=== PATIENT | male | born 1950 | race Caucasian/White ===

== ENCOUNTER 2023-03-19 10:03 | Emergency (ER) | payer OTHER, MEDICARE, BC ==
[2023-03-19 10:32] LABS: BASOPHILS PERCENT AUTO 0.5 % (0.2-1.2); EOSINOPHILS ABSOLUTE AUTO 0.3 x10^3/uL (0.0-0.5); EOSINOPHILS PERCENT AUTO 6.8 % (0.0-4.0); HEMOGLOBIN 10.8 g/dL (14.0-18.0); LYMPHOCYTES ABSOLUTE AUTO 0.4 x10^3/uL (1.0-4.8); MEAN CORPUSCULAR HEMOGLOBIN 31.8 pg (26.0-32.0); MEAN CORPUSCULAR HGB CONC 31.8 g/dL (32.0-36.0); MONOCYTES ABSOLUTE AUTO 0.3 x10^3/uL (0.0-0.8); MONOCYTES PERCENT AUTO 7.9 % (2.0-11.0); NEUTROPHILS ABSOLUTE AUTO 3.3 x10^3/uL (1.8-7.7); NEUTROPHILS PERCENT AUTO 76.4 % (50.0-80.0); PLATELET COUNT,PLT 108 x10^3/uL (130-400); WHITE BLOOD CELL COUNT,WBC 4.3 x10^3/uL (4.0-10.0)
[2023-03-19 10:43] LABS: LYMPHOCYTES PERCENT AUTO 8.4 % (25.0-50.0)
[2023-03-19 10:49] LABS: INR 1.2 (0.9-1.1); PROTHROMBIN TIME 12.4 SEC (9.5-12.2)
[2023-03-19 10:54] LABS: A/G RATIO 1.09; ALANINE AMINOTRANSFERASE,ALT 24 U/L (16-63); ALBUMIN 3.5 g/dL (3.4-5.0); ALKALINE PHOSPHATASE 103 U/L (46-116); ASPARTATE AMNIOTRANSFERASE,AST 19 U/L (15-37); BILIRUBIN TOTAL 0.6 mg/dL (0.2-1.0); BLOOD UREA NITROGEN,BUN 28 mg/dL (7-18); CALCIUM 8.7 mg/dL (8.5-10.1); CARBON DIOXIDE,CO2 31 mmol/L (21-32); CHLORIDE,CL 106 mmol/L (98-107); CREATININE 2.3 mg/dL (0.70-1.30); GLUCOSE RANDOM 294 mg/dL (70-99); POTASSIUM,K 4.4 mmol/L (3.5-5.1); PROTEIN TOTAL,TP 6.7 g/dL (6.4-8.2); SODIUM,NA 143 mmol/L (136-145)
[2023-03-19 10:55] LABS: ANION GAP 10.4 mmol/L (5-15); C-REACTIVE PROTEIN < 0.50 mg/dL (<=0.50); ESTIMATED GFR 29 mL/min (>=60)
== END 2023-03-19 11:49 | disposition home or self-care (01) ==
LOC: VM.ED 10:03
DX: R07.89 Other chest pain (principal); I12.0 Hypertensive chronic kidney disease with stage 5 chronic kidney disease or end stage renal disease; N18.30 Chronic kidney disease, stage 3 unspecified; E11.21 Type 2 diabetes mellitus with diabetic nephropathy; E11.40 Type 2 diabetes mellitus with diabetic neuropathy, unspecified; E78.00 Pure hypercholesterolemia, unspecified; Z79.4 Long term (current) use of insulin; Z79.84 Long term (current) use of oral hypoglycemic drugs; Z79.899 Other long term (current) drug therapy
CPT/HCPCS: 36415; 71046; 80053; 84484; 85025; 85610; 85730; 86140; 93005; 93010; 99284; 99285

== ENCOUNTER 2023-06-30 09:19 | Emergency (ER) | payer OTHER, MEDICARE, BC ==
[2023-06-30 09:50] LABS: BASOPHILS PERCENT AUTO 0.7 % (0.2-1.2); EOSINOPHILS ABSOLUTE AUTO 0.1 x10^3/uL (0.0-0.5); EOSINOPHILS PERCENT AUTO 3.6 % (0.0-4.0); HEMATOCRIT 32.8 % (40.0-52.0); HEMOGLOBIN 10.7 g/dL (14.0-18.0); LYMPHOCYTES PERCENT AUTO 12.3 % (25.0-50.0); MEAN CORPUSCULAR HEMOGLOBIN 31.3 pg (26.0-32.0); MEAN CORPUSCULAR HGB CONC 32.6 g/dL (32.0-36.0); MEAN CORPUSCULAR VOLUME 95.9 fL (78.0-93.0); MONOCYTES ABSOLUTE AUTO 0.3 x10^3/uL (0.0-0.8); MONOCYTES PERCENT AUTO 10.6 % (2.0-11.0); NEUTROPHILS ABSOLUTE AUTO 2.2 x10^3/uL (1.8-7.7); NEUTROPHILS PERCENT AUTO 72.8 % (50.0-80.0); PLATELET COUNT,PLT 118 x10^3/uL (130-400); RED BLOOD CELL COUNT 3.42 x10^6/uL (4.5-6.0)
[2023-06-30 10:07] LABS: D-DIMER QUANTITATIVE 0.7 mg/LFEU (<=0.58); INR 1.2 (0.9-1.1); PROTHROMBIN TIME 12.1 SEC (8.9-11.5)
[2023-06-30 10:09] LABS: LYMPHOCYTES ABSOLUTE AUTO 0.4 x10^3/uL (1.0-4.8)
[2023-06-30 10:14] LABS: A/G RATIO 1.24; ALANINE AMINOTRANSFERASE,ALT 16 U/L (16-63); ALBUMIN 3.6 g/dL (3.4-5.0); ALKALINE PHOSPHATASE 98 U/L (46-116); ASPARTATE AMNIOTRANSFERASE,AST 16 U/L (15-37); BILIRUBIN TOTAL 0.6 mg/dL (0.2-1.0); BLOOD UREA NITROGEN,BUN 40 mg/dL (7-18); CARBON DIOXIDE,CO2 29 mmol/L (21-32); CHLORIDE,CL 109 mmol/L (98-107); CREATININE 2.5 mg/dL (0.70-1.30); EST CRCL DRUG DOSING (CG) 32.67 mL/min; GLUCOSE RANDOM 271 mg/dL (70-99); POTASSIUM,K 4.4 mmol/L (3.5-5.1); PROTEIN TOTAL,TP 6.5 g/dL (6.4-8.2); SODIUM,NA 147 mmol/L (136-145)
[2023-06-30 10:17] LABS: ANION GAP 13.4 mmol/L (5-15); C-REACTIVE PROTEIN < 0.50 mg/dL (<=0.50); ESTIMATED GFR 26 mL/min (>=60)
== END 2023-06-30 10:50 | disposition home or self-care (01) ==
LOC: VM.ED 09:19
DX: R60.0 Localized edema (principal); I12.9 Hypertensive chronic kidney disease with stage 1 through stage 4 chronic kidney disease, or unspecified chronic kidney disease; N18.9 Chronic kidney disease, unspecified; I87.8 Other specified disorders of veins; E11.40 Type 2 diabetes mellitus with diabetic neuropathy, unspecified; E11.21 Type 2 diabetes mellitus with diabetic nephropathy; E11.22 Type 2 diabetes mellitus with diabetic chronic kidney disease; I48.91 Unspecified atrial fibrillation; E78.00 Pure hypercholesterolemia, unspecified; M19.90 Unspecified osteoarthritis, unspecified site; Z79.01 Long term (current) use of anticoagulants; Z79.82 Long term (current) use of aspirin; Z79.4 Long term (current) use of insulin; Z79.84 Long term (current) use of oral hypoglycemic drugs; Z79.899 Other long term (current) drug therapy
CPT/HCPCS: 36415; 80053; 85025; 85379; 85610; 86140; 99283; 99284

== ENCOUNTER 2023-12-11 11:26 | Inpatient (IN) | payer MEDICARE, BC ==
[2023-12-11] MEDS ORDERED: Acetaminophen/HYDROcodone 325-5 MG Tab PO PRN (16:49)
[2023-12-11] MEDS: Carvedilol 25 MG Tab PO SCH (18:15)
[2023-12-11] MEDS: Insulin Lispro 100 Units/ML 3 ML Vial SUBCUT SCH (18:17)
[2023-12-11] MEDS: hydrALAZINE 25 MG Tab PO SCH (21:08)
[2023-12-11] MEDS: Isosorbide Dinitrate 10 MG Tab PO SCH (21:09)
[2023-12-11] MEDS: Pramipexole 0.5 MG Tab PO SCH (21:12)
[2023-12-11] MEDS: Rosuvastatin 20 MG Tab PO SCH (21:16)
[2023-12-11] MEDS: Primidone 50 MG Tab PO SCH (21:16)
[2023-12-11] MEDS: ceFAZolin 2 GM Vial IV SCH (21:21)
[2023-12-11] MEDS: Sodium Chloride 0.9% 10 ML Syringe FLUSH SCH (21:31)
[2023-12-11] MEDS: Heparin Sodium 100 Units/ML 3 ML Syringe IVPUSH SCH (21:32)
[2023-12-12 06:52] LABS: BASOPHILS PERCENT AUTO 0.6 % (0.2-1.2); EOSINOPHILS ABSOLUTE AUTO 0.1 x10^3/uL (0.0-0.5); EOSINOPHILS PERCENT AUTO 3.8 % (0.0-4.0); HEMATOCRIT 27.7 % (40.0-52.0); HEMOGLOBIN 9.4 g/dL (14.0-18.0); IMMATURE GRAN ABSOLUTE AUTO 0.01 x10^3/uL (0.00-0.07); LYMPHOCYTES ABSOLUTE AUTO 0.6 x10^3/uL (1.0-4.8); LYMPHOCYTES PERCENT AUTO 20.3 % (25.0-50.0); MEAN CORPUSCULAR HGB CONC 33.9 g/dL (32.0-36.0); MEAN CORPUSCULAR VOLUME 97.2 fL (78.0-93.0); MONOCYTES ABSOLUTE AUTO 0.3 x10^3/uL (0.0-0.8); MONOCYTES PERCENT AUTO 9.5 % (2.0-11.0); NEUTROPHILS ABSOLUTE AUTO 2.1 x10^3/uL (1.8-7.7); NEUTROPHILS PERCENT AUTO 65.5 % (50.0-80.0); PLATELET COUNT,PLT 201 x10^3/uL (130-400); RED BLOOD CELL COUNT 2.85 x10^6/uL (4.5-6.0); WHITE BLOOD CELL COUNT,WBC 3.2 x10^3/uL (4.0-10.0)
[2023-12-12 07:16] LABS: A/G RATIO 0.86; ALKALINE PHOSPHATASE 109 U/L (46-116); ASPARTATE AMNIOTRANSFERASE,AST 22 U/L (15-37); BILIRUBIN TOTAL 0.4 mg/dL (0.2-1.0); BLOOD UREA NITROGEN,BUN 34 mg/dL (7-18); CALCIUM 9.1 mg/dL (8.5-10.1); CARBON DIOXIDE,CO2 31 mmol/L (21-32); CHLORIDE,CL 106 mmol/L (98-107); CREATININE 1.8 mg/dL (0.70-1.30); EST CRCL DRUG DOSING (CG) 44.69 mL/min; GLUCOSE RANDOM 137 mg/dL (70-99); POTASSIUM,K 4.1 mmol/L (3.5-5.1); PROTEIN TOTAL,TP 6.5 g/dL (6.4-8.2); SODIUM,NA 144 mmol/L (136-145)
[2023-12-12 07:30] LABS: ALANINE AMINOTRANSFERASE,ALT < 6 U/L (16-63); ANION GAP 11.1 mmol/L (5-15); ESTIMATED GFR 39 mL/min (>=60)
[2023-12-12] MEDS: EDOXABAN TOSYLATE 30 MG PO SCH (08:24)
[2023-12-12] MEDS: Magnesium Chloride 64 MG Tab.ER PO SCH (08:25)
[2023-12-12] MEDS: Digoxin 125 MCG Tab PO SCH (08:25)
[2023-12-12] MEDS: Ferrous Sulfate 325 MG Tab PO SCH (08:25)
[2023-12-12] MEDS: Calcitriol 0.25 MCG Cap PO SCH (08:26)
[2023-12-12] MEDS: Tamsulosin 0.4 MG Cap.ER PO SCH (08:26)
[2023-12-12] MEDS: Cyanocobalamin (Vitamin B12) 1,000 MCG Tab PO SCH (08:27)
[2023-12-12] MEDS: Aspirin 81 MG Tab.EC PO SCH (08:27)
[2023-12-12] MEDS: Furosemide 40 MG Tab PO SCH (08:27)
[2023-12-12] MEDS: Insulin Glarg,Human.Rec.Analog 100 Unit/ML 10 ML Vial SUBCUT SCH (08:34)
[2023-12-12] MEDS: Potassium Bicarbonate/Cit Ac 10 MEQ Effervescent Tab PO SCH (08:34)
[2023-12-12] MEDS: Furosemide 20 MG Tab PO SCH (12:33)
[2023-12-13] MEDS: Digoxin 125 MCG Tab PO SCH (08:39)
[2023-12-13] MEDS: EDOXABAN TOSYLATE 30 MG PO SCH (08:42)
[2023-12-16] MEDS ORDERED: Bisacodyl 5 MG Tab PO PRN (08:45)
[2023-12-16] MEDS: Sennosides/Docusate Sodium 50-8.6 MG Tab PO SCH (09:47)
[2023-12-16] MEDS: Sodium Chloride 0.9% 10 ML Syringe FLUSH SCH ×2 (14:59→21:42)
[2023-12-17 07:01] LABS: BASOPHILS PERCENT AUTO 0.4 % (0.2-1.2); EOSINOPHILS ABSOLUTE AUTO 0.1 x10^3/uL (0.0-0.5); EOSINOPHILS PERCENT AUTO 5.7 % (0.0-4.0); HEMATOCRIT 27.8 % (40.0-52.0); HEMOGLOBIN 9.4 g/dL (14.0-18.0); LYMPHOCYTES ABSOLUTE AUTO 0.6 x10^3/uL (1.0-4.8); LYMPHOCYTES PERCENT AUTO 23.5 % (25.0-50.0); MEAN CORPUSCULAR HEMOGLOBIN 33.1 pg (26.0-32.0); MEAN CORPUSCULAR HGB CONC 33.8 g/dL (32.0-36.0); MEAN CORPUSCULAR VOLUME 97.9 fL (78.0-93.0); MONOCYTES ABSOLUTE AUTO 0.3 x10^3/uL (0.0-0.8); MONOCYTES PERCENT AUTO 10.9 % (2.0-11.0); NEUTROPHILS ABSOLUTE AUTO 1.5 x10^3/uL (1.8-7.7); NEUTROPHILS PERCENT AUTO 59.5 % (50.0-80.0); PLATELET COUNT,PLT 149 x10^3/uL (130-400); RED BLOOD CELL COUNT 2.84 x10^6/uL (4.5-6.0)
[2023-12-17 07:31] LABS: A/G RATIO 0.97; ALBUMIN 3.2 g/dL (3.4-5.0); ALKALINE PHOSPHATASE 97 U/L (46-116); ASPARTATE AMNIOTRANSFERASE,AST 19 U/L (15-37); BILIRUBIN TOTAL 0.4 mg/dL (0.2-1.0); BLOOD UREA NITROGEN,BUN 31 mg/dL (7-18); CALCIUM 8.8 mg/dL (8.5-10.1); CARBON DIOXIDE,CO2 30 mmol/L (21-32); CHLORIDE,CL 105 mmol/L (98-107); CREATININE 1.9 mg/dL (0.70-1.30); EST CRCL DRUG DOSING (CG) 42.34 mL/min; GLUCOSE RANDOM 99 mg/dL (70-99); POTASSIUM,K 4.7 mmol/L (3.5-5.1); PROTEIN TOTAL,TP 6.5 g/dL (6.4-8.2); SODIUM,NA 143 mmol/L (136-145)
[2023-12-17 07:34] LABS: ALANINE AMINOTRANSFERASE,ALT < 6 U/L (16-63); ANION GAP 12.7 mmol/L (5-15); ESTIMATED GFR 36 mL/min (>=60)
[2023-12-17 07:39] LABS: WHITE BLOOD CELL COUNT,WBC 2.5 x10^3/uL (4.0-10.0)
[2023-12-19 07:06] LABS: BASOPHILS PERCENT AUTO 0.9 % (0.2-1.2); EOSINOPHILS ABSOLUTE AUTO 0.1 x10^3/uL (0.0-0.5); HEMATOCRIT 28.1 % (40.0-52.0); HEMOGLOBIN 9.5 g/dL (14.0-18.0); LYMPHOCYTES ABSOLUTE AUTO 0.6 x10^3/uL (1.0-4.8); LYMPHOCYTES PERCENT AUTO 23.6 % (25.0-50.0); MEAN CORPUSCULAR HGB CONC 33.8 g/dL (32.0-36.0); MEAN CORPUSCULAR VOLUME 97.6 fL (78.0-93.0); MONOCYTES ABSOLUTE AUTO 0.3 x10^3/uL (0.0-0.8); MONOCYTES PERCENT AUTO 11.2 % (2.0-11.0); NEUTROPHILS ABSOLUTE AUTO 1.4 x10^3/uL (1.8-7.7); NEUTROPHILS PERCENT AUTO 58.3 % (50.0-80.0); RED BLOOD CELL COUNT 2.88 x10^6/uL (4.5-6.0); WHITE BLOOD CELL COUNT,WBC 2.3 x10^3/uL (4.0-10.0)
[2023-12-19 07:33] LABS: ALBUMIN 3.3 g/dL (3.4-5.0); ALKALINE PHOSPHATASE 97 U/L (46-116); ASPARTATE AMNIOTRANSFERASE,AST 21 U/L (15-37); BILIRUBIN TOTAL 0.4 mg/dL (0.2-1.0); BLOOD UREA NITROGEN,BUN 36 mg/dL (7-18); CALCIUM 9.1 mg/dL (8.5-10.1); CARBON DIOXIDE,CO2 30 mmol/L (21-32); CHLORIDE,CL 105 mmol/L (98-107); CREATININE 1.9 mg/dL (0.70-1.30); EST CRCL DRUG DOSING (CG) 42.34 mL/min; GLUCOSE RANDOM 125 mg/dL (70-99); POTASSIUM,K 4.4 mmol/L (3.5-5.1); PROTEIN TOTAL,TP 6.6 g/dL (6.4-8.2); SODIUM,NA 142 mmol/L (136-145)
[2023-12-19 07:44] LABS: PLATELET COUNT,PLT 136 x10^3/uL (130-400)
[2023-12-19 08:00] LABS: ALANINE AMINOTRANSFERASE,ALT < 6 U/L (16-63); ANION GAP 11.4 mmol/L (5-15); ESTIMATED GFR 36 mL/min (>=60)
[2023-12-23 06:58] LABS: BASOPHILS PERCENT AUTO 0.4 % (0.2-1.2); EOSINOPHILS ABSOLUTE AUTO 0.2 x10^3/uL (0.0-0.5); EOSINOPHILS PERCENT AUTO 6.8 % (0.0-4.0); HEMOGLOBIN 9.3 g/dL (14.0-18.0); LYMPHOCYTES ABSOLUTE AUTO 0.5 x10^3/uL (1.0-4.8); LYMPHOCYTES PERCENT AUTO 21.2 % (25.0-50.0); MEAN CORPUSCULAR HEMOGLOBIN 32.5 pg (26.0-32.0); MEAN CORPUSCULAR HGB CONC 33.2 g/dL (32.0-36.0); MEAN CORPUSCULAR VOLUME 97.9 fL (78.0-93.0); MONOCYTES ABSOLUTE AUTO 0.3 x10^3/uL (0.0-0.8); MONOCYTES PERCENT AUTO 12.3 % (2.0-11.0); NEUTROPHILS ABSOLUTE AUTO 1.4 x10^3/uL (1.8-7.7); NEUTROPHILS PERCENT AUTO 59.3 % (50.0-80.0); RED BLOOD CELL COUNT 2.86 x10^6/uL (4.5-6.0); WHITE BLOOD CELL COUNT,WBC 2.4 x10^3/uL (4.0-10.0)
[2023-12-23 07:21] LABS: A/G RATIO 0.97; ALBUMIN 3.1 g/dL (3.4-5.0); ALKALINE PHOSPHATASE 92 U/L (46-116); ASPARTATE AMNIOTRANSFERASE,AST 16 U/L (15-37); BILIRUBIN TOTAL 0.4 mg/dL (0.2-1.0); BLOOD UREA NITROGEN,BUN 33 mg/dL (7-18); CARBON DIOXIDE,CO2 30 mmol/L (21-32); CHLORIDE,CL 107 mmol/L (98-107); CREATININE 1.8 mg/dL (0.70-1.30); EST CRCL DRUG DOSING (CG) 44.69 mL/min; GLUCOSE RANDOM 120 mg/dL (70-99); POTASSIUM,K 4.3 mmol/L (3.5-5.1); PROTEIN TOTAL,TP 6.3 g/dL (6.4-8.2); SODIUM,NA 143 mmol/L (136-145)
[2023-12-23 07:22] LABS: PLATELET COUNT,PLT 102 x10^3/uL (130-400)
[2023-12-23 07:23] LABS: ALANINE AMINOTRANSFERASE,ALT < 6 U/L (16-63); ANION GAP 10.3 mmol/L (5-15); ESTIMATED GFR 39 mL/min (>=60)
[2023-12-30 06:59] LABS: BASOPHILS PERCENT AUTO 0.5 % (0.2-1.2); EOSINOPHILS ABSOLUTE AUTO 0.1 x10^3/uL (0.0-0.5); EOSINOPHILS PERCENT AUTO 5.4 % (0.0-4.0); HEMATOCRIT 28.9 % (40.0-52.0); HEMOGLOBIN 9.6 g/dL (14.0-18.0); LYMPHOCYTES ABSOLUTE AUTO 0.5 x10^3/uL (1.0-4.8); MEAN CORPUSCULAR HGB CONC 33.2 g/dL (32.0-36.0); MEAN CORPUSCULAR VOLUME 99.3 fL (78.0-93.0); MONOCYTES ABSOLUTE AUTO 0.3 x10^3/uL (0.0-0.8); MONOCYTES PERCENT AUTO 11.7 % (2.0-11.0); NEUTROPHILS ABSOLUTE AUTO 1.3 x10^3/uL (1.8-7.7); NEUTROPHILS PERCENT AUTO 59.4 % (50.0-80.0); RED BLOOD CELL COUNT 2.91 x10^6/uL (4.5-6.0); WHITE BLOOD CELL COUNT,WBC 2.2 x10^3/uL (4.0-10.0)
[2023-12-30 07:12] LABS: PLATELET COUNT,PLT 94 x10^3/uL (130-400)
[2023-12-30 07:18] LABS: A/G RATIO 0.94; ALBUMIN 3.1 g/dL (3.4-5.0); ALKALINE PHOSPHATASE 93 U/L (46-116); ASPARTATE AMNIOTRANSFERASE,AST 15 U/L (15-37); BILIRUBIN TOTAL 0.3 mg/dL (0.2-1.0); BLOOD UREA NITROGEN,BUN 36 mg/dL (7-18); CALCIUM 8.9 mg/dL (8.5-10.1); CARBON DIOXIDE,CO2 32 mmol/L (21-32); CHLORIDE,CL 106 mmol/L (98-107); CREATININE 1.9 mg/dL (0.70-1.30); EST CRCL DRUG DOSING (CG) 42.34 mL/min; GLUCOSE RANDOM 133 mg/dL (70-99); POTASSIUM,K 4.6 mmol/L (3.5-5.1); PROTEIN TOTAL,TP 6.4 g/dL (6.4-8.2); SODIUM,NA 144 mmol/L (136-145)
[2023-12-30 07:25] LABS: ALANINE AMINOTRANSFERASE,ALT < 6 U/L (16-63); ANION GAP 10.6 mmol/L (5-15); C-REACTIVE PROTEIN < 0.50 mg/dL (<=0.50); ESTIMATED GFR 36 mL/min (>=60)
[2024-01-06 06:52] LABS: BASOPHILS PERCENT AUTO 0.4 % (0.2-1.2); EOSINOPHILS ABSOLUTE AUTO 0.2 x10^3/uL (0.0-0.5); EOSINOPHILS PERCENT AUTO 7.5 % (0.0-4.0); HEMATOCRIT 28.5 % (40.0-52.0); HEMOGLOBIN 9.5 g/dL (14.0-18.0); LYMPHOCYTES ABSOLUTE AUTO 0.4 x10^3/uL (1.0-4.8); LYMPHOCYTES PERCENT AUTO 18.1 % (25.0-50.0); MEAN CORPUSCULAR HGB CONC 33.3 g/dL (32.0-36.0); MONOCYTES ABSOLUTE AUTO 0.2 x10^3/uL (0.0-0.8); MONOCYTES PERCENT AUTO 10.2 % (2.0-11.0); NEUTROPHILS ABSOLUTE AUTO 1.4 x10^3/uL (1.8-7.7); NEUTROPHILS PERCENT AUTO 63.8 % (50.0-80.0); RED BLOOD CELL COUNT 2.88 x10^6/uL (4.5-6.0); WHITE BLOOD CELL COUNT,WBC 2.3 x10^3/uL (4.0-10.0)
[2024-01-06 07:11] LABS: PLATELET COUNT,PLT 96 x10^3/uL (130-400)
[2024-01-06 07:18] LABS: A/G RATIO 0.88; ALKALINE PHOSPHATASE 88 U/L (46-116); ASPARTATE AMNIOTRANSFERASE,AST 15 U/L (15-37); BILIRUBIN TOTAL 0.3 mg/dL (0.2-1.0); BLOOD UREA NITROGEN,BUN 34 mg/dL (7-18); CARBON DIOXIDE,CO2 31 mmol/L (21-32); CHLORIDE,CL 107 mmol/L (98-107); EST CRCL DRUG DOSING (CG) 40.22 mL/min; GLUCOSE RANDOM 108 mg/dL (70-99); POTASSIUM,K 4.7 mmol/L (3.5-5.1); PROTEIN TOTAL,TP 6.4 g/dL (6.4-8.2); SODIUM,NA 146 mmol/L (136-145)
[2024-01-06 07:20] LABS: ALANINE AMINOTRANSFERASE,ALT < 6 U/L (16-63); ANION GAP 12.7 mmol/L (5-15); C-REACTIVE PROTEIN < 0.50 mg/dL (<=0.50); ESTIMATED GFR 34 mL/min (>=60)
[2024-01-08 07:07] LABS: BASOPHILS PERCENT AUTO 0.7 % (0.2-1.2); EOSINOPHILS ABSOLUTE AUTO 0.2 x10^3/uL (0.0-0.5); EOSINOPHILS PERCENT AUTO 6.9 % (0.0-4.0); HEMATOCRIT 28.8 % (40.0-52.0); HEMOGLOBIN 9.5 g/dL (14.0-18.0); LYMPHOCYTES ABSOLUTE AUTO 0.5 x10^3/uL (1.0-4.8); LYMPHOCYTES PERCENT AUTO 17.8 % (25.0-50.0); MONOCYTES ABSOLUTE AUTO 0.3 x10^3/uL (0.0-0.8); MONOCYTES PERCENT AUTO 9.8 % (2.0-11.0); NEUTROPHILS ABSOLUTE AUTO 1.8 x10^3/uL (1.8-7.7); NEUTROPHILS PERCENT AUTO 64.8 % (50.0-80.0); RED BLOOD CELL COUNT 2.88 x10^6/uL (4.5-6.0); WHITE BLOOD CELL COUNT,WBC 2.8 x10^3/uL (4.0-10.0)
[2024-01-08 07:21] LABS: ANION GAP 10.6 mmol/L (5-15); CALCIUM 8.9 mg/dL (8.5-10.1); CREATININE 2.1 mg/dL (0.70-1.30); EST CRCL DRUG DOSING (CG) 38.3 mL/min; POTASSIUM,K 4.6 mmol/L (3.5-5.1)
[2024-01-08 07:25] LABS: PLATELET COUNT,PLT 101 x10^3/uL (130-400)
== END 2024-01-12 09:30 | disposition home or self-care (01) | DRG 637 ==
LOC: VM.MS 15:10
PROVIDERS: ADMIT Internal Medicine; ATTEND Internal Medicine
DX: E11.69 Type 2 diabetes mellitus with other specified complication (principal); D61.811 Other drug-induced pancytopenia; M86.8X7 Other osteomyelitis, ankle and foot; I13.0 Hypertensive heart and chronic kidney disease with heart failure and stage 1 through stage 4 chronic kidney disease, or unspecified chronic kidney disease; I50.22 Chronic systolic (congestive) heart failure; R78.81 Bacteremia; I48.20 Chronic atrial fibrillation, unspecified; L03.115 Cellulitis of right lower limb; E11.621 Type 2 diabetes mellitus with foot ulcer; E11.65 Type 2 diabetes mellitus with hyperglycemia; E11.22 Type 2 diabetes mellitus with diabetic chronic kidney disease; N18.30 Chronic kidney disease, stage 3 unspecified; E78.5 Hyperlipidemia, unspecified; E11.42 Type 2 diabetes mellitus with diabetic polyneuropathy; I27.20 Pulmonary hypertension, unspecified; G47.33 Obstructive sleep apnea (adult) (pediatric); B95.61 Methicillin susceptible Staphylococcus aureus infection as the cause of diseases classified elsewhere; L97.519 Non-pressure chronic ulcer of other part of right foot with unspecified severity; T36.1X5A Adverse effect of cephalosporins and other beta-lactam antibiotics, initial encounter; Z79.4 Long term (current) use of insulin; Z79.82 Long term (current) use of aspirin; Z79.899 Other long term (current) drug therapy
CPT/HCPCS: 36415; 80048; 80053; 82607; 82947; 85025; 86140; 87070; 95851-GO; 97110-GP; 97112-GP; 97116-GP; 97161-GP; 97164-GP; 97165-GO; 97530-GP; 97535-GO; A9270-GY; J0690; J1642; J1815-GY; J3490

== ENCOUNTER 2024-05-05 14:27 | Emergency (ER) | payer OTHER, MEDICARE, BC ==
[2024-05-05] MEDS ORDERED: Sodium Chloride 0.9% 10 ML Syringe FLUSH PRN (14:32)
[2024-05-05 14:38] LABS: BASOPHILS PERCENT AUTO 0.5 % (0.2-1.2); EOSINOPHILS ABSOLUTE AUTO 0.2 x10^3/uL (0.0-0.5); EOSINOPHILS PERCENT AUTO 3.9 % (0.0-4.0); HEMATOCRIT 32.1 % (40.0-52.0); HEMOGLOBIN 10.7 g/dL (14.0-18.0); IMMATURE GRAN ABSOLUTE AUTO 0.01 x10^3/uL (0.00-0.07); LYMPHOCYTES ABSOLUTE AUTO 0.5 x10^3/uL (1.0-4.8); LYMPHOCYTES PERCENT AUTO 11.5 % (25.0-50.0); MEAN CORPUSCULAR HEMOGLOBIN 31.6 pg (26.0-32.0); MEAN CORPUSCULAR HGB CONC 33.3 g/dL (32.0-36.0); MEAN CORPUSCULAR VOLUME 94.7 fL (78.0-93.0); MONOCYTES ABSOLUTE AUTO 0.5 x10^3/uL (0.0-0.8); NEUTROPHILS ABSOLUTE AUTO 3.1 x10^3/uL (1.8-7.7); NEUTROPHILS PERCENT AUTO 71.9 % (50.0-80.0); PLATELET COUNT,PLT 144 x10^3/uL (130-400); RED BLOOD CELL COUNT 3.39 x10^6/uL (4.5-6.0); WHITE BLOOD CELL COUNT,WBC 4.3 x10^3/uL (4.0-10.0)
[2024-05-05 14:51] LABS: INR 1.1 (0.9-1.1); PROTHROMBIN TIME 11.6 SEC (9.6-12.0); PTT,PARTIAL THROMBOPLSTIN TIME 28.8 SEC (23.5-33.2)
[2024-05-05 14:58] LABS: A/G RATIO 0.89; ALANINE AMINOTRANSFERASE,ALT 18 U/L (16-63); ALBUMIN 3.4 g/dL (3.4-5.0); ALKALINE PHOSPHATASE 123 U/L (46-116); ASPARTATE AMNIOTRANSFERASE,AST 14 U/L (15-37); BILIRUBIN TOTAL 0.5 mg/dL (0.2-1.0); BLOOD UREA NITROGEN,BUN 44 mg/dL (7-18); C-REACTIVE PROTEIN 3.56 mg/dL (<=0.50); CALCIUM 9.3 mg/dL (8.5-10.1); CARBON DIOXIDE,CO2 26 mmol/L (21-32); CHLORIDE,CL 103 mmol/L (98-107); CREATININE 2.6 mg/dL (0.70-1.30); GLUCOSE RANDOM 208 mg/dL (70-99); MAGNESIUM 2.3 mg/dL (1.8-2.4); POTASSIUM,K 4.6 mmol/L (3.5-5.1); PROTEIN TOTAL,TP 7.2 g/dL (6.4-8.2); SODIUM,NA 144 mmol/L (136-145)
[2024-05-05 14:59] LABS: ANION GAP 19.6 mmol/L (5-15); ESTIMATED GFR 25 mL/min (>=60)
== END 2024-05-05 17:40 | disposition short-term general hospital (02) ==
LOC: VM.ED 14:27
DX: I47.20 Ventricular tachycardia, unspecified (principal); I11.0 Hypertensive heart disease with heart failure; I50.9 Heart failure, unspecified; E78.00 Pure hypercholesterolemia, unspecified; E11.9 Type 2 diabetes mellitus without complications; M19.90 Unspecified osteoarthritis, unspecified site; Z79.4 Long term (current) use of insulin; Z79.82 Long term (current) use of aspirin; Z79.899 Other long term (current) drug therapy
CPT/HCPCS: 71045; 80053; 80162; 83735; 84484; 85025; 85610; 85730; 86140; 93005; 93010; 99284; 99285